=== PATIENT | female | born 2000 | race Caucasian/White ===

== ENCOUNTER 2021-08-22 10:55 | Inpatient (IN) ==
--- NOTE | 2021-08-22 11:52 | Emergency Department Note ---
Impression & Plan Lumbar disc herniation with radiculopathy ED Provider Note CHIEF COMPLAINT: Lower back pain HISTORY OF PRESENT ILLNESS: Domonique Foster is a 21 year old female with history of previous back injury with herniated lumbar discs in 2014 who presents to the Emergency Department for evaluation of an exacerbation of pain to her lower back, radiating down her bilateral posterior legs, R>L, with associated paresthesias, which she describes as "burning, vibrating and numbness", which has progressed over the past 12 days. The patient denies suffering specific recent fall or injury to her back but states that she first noticed pain after she did a lot of walking. Since then, she has developed the symptoms as noted above, which first radiated down her right posterior leg and has now also started to radiate down her left posterior leg as well. The patient also associates weakness in her legs and states that she has difficulty standing up straight or walking very short distances. She does note some numbness in her right groin as well but she denies specific saddle paresthesias or loss of continence of her bowels or bladder. She also denies pain radiating into her upper back, neck or down her arms. The patient did visit [facility] for her symptoms a few days ago and was prescribed a prednisone taper, Flexeril TID and Percocet Q4H which she has been taking around the clock. She has also started taking Lyrica as well. The patient does state that these medications do seem to be helping her as her pain has now gone from a "20/10" to a current 2/10, however as she seemed to have more weakness in her right leg today, she was referred to the ED for further evaluation. The patient states that she is the most comfortable when laying flat with a pillow under her lumbar spine and her legs bent. Her pain becomes much worse with attempts of movement. The patient otherwise denies recent fevers/chills, respiratory difficulties, chest pain, palpitations, abdominal pain, nausea or vomiting. She has continued to move her bowels and urinate normally. REVIEW OF SYSTEMS: 10 systems were reviewed and were negative unless otherwise stated in HPI as above PHYSICAL EXAM: VITALS: Vitals are noted on the nurse's note and reviewed by myself. Vital signs stable. General: Resting in bed, no acute distress HEENT: Normocephalic, atraumatic, PERRL, EOMI, mucous membranes moist, oropharynx clear Neck: No mid-line or paraspinal cervical tenderness, ROM intact without pained Back: Notes pain to the midline and bilateral lower paraspinal musculature but not reproducible to palpation. No obvious step-offs or deformities MSK/neuro: Notes burning pains and paraesthesias to the bilateral posterior lower extremities. Sensation intact to deep palpation but not to light touch to the posterior lower extremities and right groin. No pain or paresthesias to the anterior lower extremities or upper extremities. Strength remains 5/5 throughout all extremities Neuro: Awake, alert and oriented x 3, interacting and answering questions appropriately Differential diagnosis includes musculoskeletal, disc herniation, fracture, cord compression, discitis, sciatica, cauda equina, as well as other pathologies. EMERGENCY DEPARTMENT COURSE: Physical exam and history were performed. Nursing triage notes, EMR, and medication list were personally reviewed. Patient is a 21 year old female with history of previous back injury with herniated lumbar discs in 2014 who presents to the Emergency Department for ev aluation of an exacerbation of pain to her lower back, radiating down her bilateral posterior legs, R>L, with associated paresthesias, which she describes as "burning, vibrating and numbness", which has progressed over the past 12 days. Additional history as described above. See physical exam as noted above. The patient was offered pain medication several times throughout her emergency department course but declined. The patient's symptoms were concerning for disc herniation with cord compre ssion. Though she does not currently present with symptoms of cauda equina, concerning for progression to this. For these reasons, MRI of the lumbar spine were obtained. MRI lumbar spine was obtained and reviewed by radiologist myself as below. This did show a large disc herniation at L4-5 with severe central canal stenosis at this level and a large inferiorly extruded/possibly sequestered fragment. Mild degenerative endplate edema noted at L4-5. I discussed the results of the above findings with the patient at bedside. I also contacted Dr. Spencer of orthopedic spine. He evaluated the patient at bedside. He plans to admit the patient to the hospital for further management and likely surgical intervention. The patient verbalized her understanding and agreement with the treatment plan as above. The chart was completed utilizing [employer] Voice [employer]. Grammatical errors, random word insertions, pronoun errors, and incomplete sentences are an occasional consequence of this system due to software limitations, ambient noise, and hardware issues. Any formal questions or concerns about the content, text, or information contained within the body of this dictation should be directly addressed to the provider for clarification. Past Med/Surg History Medical History (Updated 08/22/21 @ 21:09 by Loli Null PA-C) No significant past medical history Surgical History (Updated 08/22/21 @ 21:08 by Loli Null PA-C) No pertinent past surgical history Social History Smoking Status: Current every day smoker Tobacco Type: E-cigarettes / Vaping Preferred Language: Moldovan Feels Safe at Home: Yes Allergies Allergies Allergy/AdvReac Type Severity Reaction Status Date / Time Penicillins Allergy Unknown Verified 04/24/18 22:33 Home Meds Home Medications Medication Instructions Recorded Confirmed Unobtainable 10/14/18 10/14/18 Results & Data (ED) Vital Signs Vital Signs - 24 hr 08/22/21 11:01 08/22/21 12:47 08/22/21 16:00 Temperature 36.5 C 36.6 C Temperature Source Temporal Artery Scan Oral Pulse Rate 100 H Pulse Rate [Right Finger] 77 72 Pulse Rhythm Regular Pulse Strength Normal Respiratory Rate 18 16 20 Respiratory Effort / Characteristics Non-Labored Spontaneous Respiratory Depth Normal Normal Respiratory Pattern Regular Blood Pressure 134/83 Blood Pressure [Right Arm] 127/61 136/75 Blood Pressure Mean 100 Blood Pressure Mean [Right Arm] 83 95 Blood Pressure Position Sitting Blood Pressure Position [Right Arm] Semi-fowlers Pulse Oximetry 97 94 98 Oxygen Delivery Method Room Air Room Air Room Air Sepsis Recent Fever Within 48 Hours No Sepsis New/Unexplained Change in Mental Status No Sepsis Action Taken by Nursing No Action Required 08/22/21 20:00 Temperature Temperature Source Pulse Rate Pulse Rate [Right Finger] 74 Pulse Rhythm Pulse Strength Respiratory Rate 20 Respiratory Effort / Characteristics Non-Labored Respiratory Depth Normal Respiratory Pattern Blood Pressure Blood Pressure [Right Arm] 124/77 Blood Pressure Mean Blood Pressure Mean [Right Arm] 92 Blood Pressure Position Blood Pressure Position [Right Arm] Lying Pulse Oximetry 98 Oxygen Delivery Method Room Air Sepsis Recent Fever Within 48 Hours Sepsis New/Unexplained Change in Mental Status Sepsis Action Taken by Nursing Laboratory Data Result diagrams: 08/22/21 15:49 08/22/21 15:49 Lab Results 08/22/21 08/22/21 08/22/21 Range/Units 15:49 15:49 15:49 WBC 11.72 H (4.8-10.8) K/ul RBC 5.40 H (3.93-5.22) M/uL Hgb 16.3 H (12.0-16.0) g/dl Hct 47.9 H (34.1-44.9) % MCV 88.7 (80.0-100.0) fL MCH 30.2 (25.0-34.0) pg MCHC 34.0 (32.0-36.0) g/dL RDW Std Deviation 40.3 (36.4-46.3) fL RDW Coeff of Walt 12.4 (11.5-14.5) % Plt Count 304 (130-400) K/uL MPV 10.9 (9.4-12.3) fL Immature Gran % (Auto) 0.3 % Neut % (Auto) 89.6 % Lymph % (Auto) 6.7 % Claiborne % (Auto) 3.3 % Eos % (Auto) 0.0 % Baso % (Auto) 0.1 % Neut # (Auto) 10.50 H (1.4-6.5) K/uL Lymph # (Auto) 0.78 L (1.2-3.4) K/uL Claiborne # (Auto) 0.39 (0.24-0.82) K/uL Eos # (Auto) 0.00 (0-0.50) K/uL Baso # (Auto) 0.01 (0-0.2) K/uL Immature Gran # (Auto) 0.04 H (0.00-0.02) K/uL Sodium 136 (136-145) mmol/L Potassium 4.1 (3.5-5.1) mmol/L Chloride 101 (98-107) mmol/L Carbon Dioxide 27 (21-32) mmol/L Anion Gap 8 (3-11) BUN 18 (6-23) mg/dl Creatinine 0.69 (0.6-1.2) mg/dl Est Cr Clr Drug Dosing 137.7 ml/min Est GFR ( Amer) 143.2 ml/min Est GFR (Non-Af Amer) 123.6 ml/min BUN/Creatinine Ratio 26.1 H (10-20) Glucose 106 H (70-99(Fasting)) mg/dl Calcium 10.1 (8.5-10.1) mg/dl Total Bilirubin 1.1 H (0.2-1.0) mg/dl AST 14 (13-39) U/L ALT 12 (7-52) U/L Alkaline Phosphatase 58 (34-104) U/L Total Protein 8.4 H (6.0-8.3) gm/dl Albumin 4.8 (3.4-5.0) gm/dl Globulin 3.6 (2.5-4.0) gm/dl Albumin/Globulin Ratio 1.3 (0.9-2) SARS-CoV-2, RNA, NAAT NEGATIVE (NEGATIVE) Imaging Data Radiologist's Impression: Lumbar Spine MRI 08/22/21 11:37 MRI OF THE LUMBAR SPINE WITHOUT IV CONTRAST CLINICAL HISTORY: Low back pain. Bilateral lower extremity weakness and paresthesias. COMPARISON STUDY: No priors. TECHNIQUE: MRI of the lumbar spine is performed utilizing various T1 and T2- weighted sequences in the axial and sagittal planes. IV contrast was not administered for this examination. FINDINGS: Lumbar spine: Vertebral body height and alignment are maintained throughout the lumbar spine. The transverse and spinous processes appear intact. There is no spondylolysis. No destructive bony lesion is seen. Chronic degenerative endplate change and mild endplate edema is noted at L4-L5. Intervertebral discs: Degenerative disc desiccation and loss of height is seen in the mid to lower lumbar region. Loss of height is moderate at L3-L4 and L4- L5. Spinal cord: The visualized spinal cord is normal in morphology and signal intensity. The conus medullaris terminates at the T12-L1 interspace. The nerve roots of the cauda equina are normal in morphology. L1-L2: Unremarkable. L2-L3: There is broad-based posterior disc bulge with annular fissure. This abuts the transiting nerve roots. No significant acquired compromise of the central canal is identified. The neural foramina are patent. L3-L4: There is broad-based posterior disc bulge with annular fissure. This abu ts the transiting nerve roots. No significant acquired compromise of the central canal is identified. The neural foramina are patent. L4-L5: There is a large posterior disc herniation with an inferiorly extruded fragment. The extruded disc fragment measures up to 2.5 cm. This impinges on the transiting nerve roots and tethers the cauda equina. There is severe central canal stenosis at this level with a minimum AP canal diameter of less than 1 mm. Left lateral disc bulge contributes to severe subarticular stenosis and impinges on the exiting left L4 nerve root. There is a mild right lateral disc bulge. There is moderate left and minimal right neural foraminal narrowing. L5-S1: Unremarkable. Sacrum: The visualized sacrum is normal in morphology and signal intensity. Soft tissues: The paraspinous soft tissues are within normal limits. The retroperitoneal structures are grossly unremarkable but incompletely evaluated. IMPRESSION: 1. There is a large disc herniation at L4-L5 with severe central canal stenosis at this level and a large inferiorly extruded/possibly sequestered fragment. Surgical evaluation is advised. 2. Degenerative disc disease at additional levels as above. 3. Mild degenerative endplate edema is noted at L4-L5. Dictated: 08/22/2021 12:43 PM Transcribed: 08/22/2021 1:08 PM Daniella [id number] [email or web address] Electronically signed by: Hubert Humphrey M.D. 08/22/2021 1:10 PM Discharge Plan Visit Data Chief Complaint: Back Injury/Pain Stated Complaint: RT LEG NUMB,HERNIATED DISC,LT LEG TINGLING ED Provider: Mark Collado ED Midlevel Provider: Loli Null Discharge Problem: Lumbar disc herniation with radiculopathy Patient Disposition: Admitted As Inpatient Forms Stand Alone Forms: [facility] Prescriptions Prescriptions: No Action Unobtainable Referrals Referrals: PCP,NO [Physician] -
--- NOTE | 2021-08-22 13:11 | Magnetic Resonance Report ---
MRI OF THE LUMBAR SPINE WITHOUT IV CONTRAST CLINICAL HISTORY: Low back pain. Bilateral lower extremity weakness and paresthesias. COMPARISON STUDY: No priors. TECHNIQUE: MRI of the lumbar spine is performed utilizing various T1 and T2-weighted sequences in the axial and sagittal planes. IV contrast was not administered for this examination. FINDINGS: Lumbar spine: Vertebral body height and alignment are maintained throughout the lumbar spine. The tra nsverse and spinous processes appear intact. There is no spondylolysis. No destructive bony lesion is seen. Chronic degenerative endplate change and mild endplate edema is noted at L4-L5. Intervertebral discs: Degenerative disc desiccation and loss of height is seen in the mid to lower juvenal mbar region. Loss of height is moderate at L3-L4 and L4-L5. Spinal cord: The visualized spinal cord is normal in morphology and signal intensity. The conus medul markos terminates at the T12-L1 interspace. The nerve roots of the cauda equina are normal in morpholo gy. L1-L2: Unremarkable. L2-L3: There is broad-based posterior disc bulge with annular fissure. This abuts the transiting nerv e roots. No significant acquired compromise of the central canal is identified. The neural foramina a re patent. L3-L4: There is broad-based posterior disc bulge with annular fissure. This abuts the transiting nerv e roots. No significant acquired compromise of the central canal is identified. The neural foramina a re patent. L4-L5: There is a large posterior disc herniation with an inferiorly extruded fragment. The extruded disc fragment measures up to 2.5 cm. This impinges on the transiting nerve roots and tethers the caud a equina. There is severe central canal stenosis at this level with a minimum AP canal diameter of le ss than 1 mm. Left lateral disc bulge contributes to severe subarticular stenosis and impinges on the exiting left L4 nerve root. There is a mild right lateral disc bulge. There is moderate left and min imal right neural foraminal narrowing. L5-S1: Unremarkable. Sacrum: The visualized sacrum is normal in morphology and signal intensity. Soft tissues: The paraspinous soft tissues are within normal limits. The retroperitoneal structures a re grossly unremarkable but incompletely evaluated. IMPRESSION: 1. There is a large disc herniation at L4-L5 with severe central canal stenosis at this level and a l arge inferiorly extruded/possibly sequestered fragment. Surgical evaluation is advised. 2. Degenerative disc disease at additional levels as above. 3. Mild degenerative endplate edema is noted at L4-L5. Dictated: 08/22/2021 12:43 PM Transcribed: 08/22/2021 1:08 PM Daniella [id number] [email or web address] Electronically signed by: Hubert Humphrey M.D. 08/22/2021 1:10 PM
[2021-08-22 16:07] LABS: Basophils # (auto) 0.01 K/uL (0-0.2); Basophils % (auto) 0.1 %; Hematocrit (blood only) 47.9 % (34.1-44.9); Hemoglobin 16.3 g/dl (12.0-16.0); Immature Granulocytes # (auto) 0.04 K/uL (0.00-0.02); Immature Granulocytes % (auto) 0.3 %; Lymphocytes # (auto) 0.78 K/uL (1.2-3.4); Lymphocytes % (auto) 6.7 %; Mean Corpuscular Hemoglobin 30.2 pg (25.0-34.0); Mean Corpuscular Volume 88.7 fL (80.0-100.0); Mean Platelet Volume 10.9 fL (9.4-12.3); Monocytes # (auto) 0.39 K/uL (0.24-0.82); Monocytes % (auto) 3.3 %; Neutrophils % (auto) 89.6 %; Platelet Count 304 K/uL (130-400); RDW Coefficient of Variation 12.4 % (11.5-14.5); RDW Standard Deviation 40.3 fL (36.4-46.3); White Blood Count 11.72 K/ul (4.8-10.8)
[2021-08-22 16:26] LABS: Albumin Globulin Ratio 1.3 (0.9-2); Albumin Level 4.8 gm/dl (3.4-5.0); BUN Creatinine Ratio 26.1 (10-20); Bilirubin,Total 1.1 mg/dl (0.2-1.0); Calcium 10.1 mg/dl (8.5-10.1); Creatinine Clr Calc Pharmacy 137.7 ml/min; Est GFR (African American) 143.2 ml/min; Est GFR (Non-African American) 123.6 ml/min; Globulin 3.6 gm/dl (2.5-4.0); Potassium 4.1 mmol/L (3.5-5.1); Total Protein 8.4 gm/dl (6.0-8.3)
--- NOTE | 2021-08-22 16:43 | History & Physical Report ---
Date of Service August 22, 2021 Assessment & Plan (1) Lumbar disc herniation with radiculopathy: Plan: Assessment massive lumbar disc herniation L4-5 with caudal migration of free fragment favoring the right side. This is causing severe spinal stenosis. Plan at this time she is being admitted. She is a candidate for lumbar decompression and fusion. We are awaiting her family to arrive for final plan. We had lengthy discussion today regarding cauda equina and symptoms to be wary of. Obviously if there is an change in her status she will notify us. This point we will admit her for pain control make her n.p.o. after midnight and possible plan for surgery tomorrow once we have an opportunity to review her case with the family. History of Present Illness Chief Complaint: Back pain with bilateral leg numbness Primary Care Provider: [facility] [[email or web address]] This is a very pleasant 21-year-old female who presents the emergency room today with significant back pain and worsening leg numbness. She states he is symptoms involving the right leg began a few days ago but now involve the left leg. She is pain across lumbosacral junction rating the buttocks. There is a dense numbness in the right posterior thigh below the knee into her lateral foot. On the left she has intermittent numbness with radicular pain down to the foot. She denies any precipitating trauma fall or event. She is currently a student at [employer]. She denies any loss of bowel or bladder control. She denies any perineal numbness. Allergies Allergy/AdvReac Type Severity Reaction Status Date / Time Penicillins Allergy Unknown Verified 04/24/18 22:33 Home Medications Medication Instructions Recorded Confirmed Type Unobtainable 10/14/18 10/14/18 History Past Med/Surg History Medical History (Updated 08/22/21 @ 16:42 by Vikash Spencer DO) No significant past medical history Social History Smoking Status: Current every day smoker Tobacco Type: E-cigarettes / Vaping Preferred Language: Amharic Feels Safe at Home: Yes Physical Exam Physical Exam: On exam patient is most comfortable lying supine with her knees bent under a pillow. She has dense numbness to touch involving the right lower extremity from the thigh to the lateral foot. There is increased sensation to the left lower extremity. She is marked tension signs with straight leg raising on the left with contralateral signs straight leg raising on the right. Deep tendon reflexes diminished. She is a plus 5 out of 5 bilateral plantar flexion dorsiflexion extensor hallucis longus quadriceps. Results & Data Results & Data ([facility]) Vital Signs (Past 12 Hours) Vital Signs Temp Pulse Pulse Resp BP BP Pulse Ox 08/22/21 16:00 36.6 C 72 20 136/75 98 08/22/21 12:47 77 16 127/61 94 08/22/21 11:01 36.5 C 100 H 18 134/83 97 O2 Del Method 08/22/21 16:00 Room Air 08/22/21 12:47 Room Air 08/22/21 11:01 Room Air Code Status & VTE Plan VTE Prophylaxis Plan VTE Prophylaxis will be ordered: Yes
[2021-08-22] MEDS ORDERED: PROMETHAZINE HCL 12.5 MG in SODIUM CHLORIDE 0.9% 50 ML IV PRN (21:33)
[2021-08-22] MEDS ORDERED: ONDANSETRON INJ 2 MG/ML 2 ML VIAL IV PRN (21:33)
[2021-08-22] MEDS ORDERED: NALOXONE HCL 0.4 MG/1 ML VIAL/CARP IV PRN (21:33)
[2021-08-22] MEDS ORDERED: LORazepam 0.5 MG in SYRINGE 0.25 ML IV PRN (21:33)
[2021-08-22] MEDS ORDERED: LORazepam 0.5 MG TAB PO PRN (21:33)
[2021-08-22] MEDS ORDERED: ACETAMINOPHEN 500 MG TAB PO PRN (21:33)
[2021-08-22] MEDS ORDERED: ONDANSETRON 4 MG OD TAB PO PRN (21:33)
[2021-08-22] MEDS ORDERED: oxyCODONE HCL IR 5 MG TAB (IMMEDIATE RELEASE) PO PRN (21:33)
[2021-08-22] MEDS ORDERED: traMADol HCL 50 MG TABLET PO PRN (21:33)
[2021-08-22] MEDS ORDERED: METOCLOPRAMIDE HCL INJ 5 MG/ML 2 ML VIAL IV PRN (21:33)
[2021-08-22] MEDS: HYDROmorphone INJ 0.5 MG/0.5 ML SYR IV PRN ×2 (22:07→22:28)
[2021-08-22] MEDS: LACTATED RINGER'S 1,000 ML IV SCH (22:07)
[2021-08-22] MEDS: ACETAMINOPHEN 1,000 MG/100 ML VIAL IV PRN (22:29)
[2021-08-23] MEDS ORDERED: CLINDAMYCIN/D5W 600 MG/50 ML BAG IV SCH (06:00)
[2021-08-23] MEDS: HYDROmorphone INJ 1 MG/ML SYRINGE IV PRN ×14 (07:54→23:19)
[2021-08-23] MEDS: LACTATED RINGER'S 1,000 ML IV SCH ×2 (10:37→20:18)
[2021-08-23] MEDS: ACETAMINOPHEN 1,000 MG/100 ML VIAL IV PRN (10:40)
--- NOTE | 2021-08-23 12:58 | Anesthesiology Consultation ---
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 History Surgery Operation Date: 08/23/21 07:00 Proposed Procedures p L4-L5 Decompression Fusion - Vikash Spencer DO Height/Weight Height: 5 ft 7 in Weight: 78.1 kg Allergies Allergy/AdvReac Type Severity Reaction Status Date / Time Penicillins Allergy Unknown Verified 04/24/18 22:33 Medications Home Medications Medication Instructions Recorded Confirmed Last Taken Unobtainable 10/14/18 10/14/18 Unknown Active Medications Generic Name Dose Route Start Last Admin Trade Name Freq PRN Reason Stop Dose Admin Hydromorphone HCl 0.5 mg 08/22/21 21:33 08/22/21 22:28 Hydromorphone Inj 0.5 Mg/0.5 Ml Syr IV 09/05/21 21:32 0.5 mg Q3H PRN Administration MOD pain (scale 4-6) & Pre PT Hydromorphone HCl 1 mg 08/22/21 21:33 08/23/21 10:37 Hydromorphone Inj 1 Mg/Ml Syringe IV 09/05/21 21:32 1 mg Q3H PRN Administration severe pain (scale 7-10) Acetaminophen 1,000 mg in 100 mls @ 400 mls/hr 08/22/21 21:33 08/23/21 10:40 Ofirmev IV 08/23/21 21:33 400 mls/hr Q8H PRN Administration Pain Rating 1-3 & Pre PT Lactated Ringer's 1,000 mls @ 75 mls/hr 08/22/21 21:33 08/23/21 10:37 Lr IV 09/21/21 21:32 75 mls/hr .[id number] Administration Oxycodone HCl 5 - 10 mg 08/22/21 21:33 08/23/21 01:08 Oxycodone Hcl Ir 5 Mg Tab (Immediate Release) PO 09/05/21 21:32 10 mg Q4H PRN Administration mod to severe pain Past Medical History Medical History No significant past medical history Past Surgical History Surgical History No pertinent past surgical history Social History Smoking Status: Current some day smoker tobacco type: cigarettes Smoking cigarettes per day: 1 every 3 weeks Do You Dip or Chew Tobacco: No Hx Alcohol Use: Yes Alcohol type: hard liquor alcohol intake frequency: a few times a week Alcohol Intake Frequency Comment: 4-6 drinks Hx Substance Use: Yes substance use type: marijuana Last Used Substance: Days (ago) Physical Exam Vital Signs Last Vital Signs Temp 97.5 F L 08/23/21 11:42 Pulse 56 L 08/23/21 11:42 Resp 16 08/23/21 11:42 BP 103/63 08/23/21 11:42 Pulse Ox 97 08/23/21 11:42 O2 Del Method 08/23/21 11:42 Testing Laboratory Results 08/22/21 15:49 08/22/21 15:49
[2021-08-23] MEDS ORDERED: ONDANSETRON INJ 2 MG/ML 2 ML VIAL IV PRN ×2 (13:30→19:44)
[2021-08-23] MEDS ORDERED: ATROPINE SULFATE 0.1 MG/ML 10ML SYR IV PRN (13:30)
[2021-08-23] MEDS ORDERED: ePHEDrine sulfate 50 MG/ML AMP IV PRN (13:30)
--- NOTE | 2021-08-23 14:04 | History & Physical Bridge Note ---
Date of Service August 23, 2021 History & Physical Bridge Note I have examined the patient, reviewed the History & Physical and in the interval since the performance of the History & Physical I have noted the following changes of clinical significance: Patient continues to note dense numbness to the right lower extremity with radiculopathy left lower extremity. She is marked inability ambulate without assistance. In light of her MRI findings and clinical presentation and recommending emergent decompression fusion to avoid permanent neurologic damage.
[2021-08-23] MEDS ORDERED: fentaNYL citrate 100 MCG/2 ML VIAL ONE (14:37)
[2021-08-23] MEDS ORDERED: ONDANSETRON INJ 2 MG/ML 2 ML VIAL ONE (14:37)
[2021-08-23] MEDS ORDERED: MIDAZOLAM HCL 1 MG/ML 2ML VIAL ONE (14:37)
[2021-08-23] MEDS ORDERED: LIDOCAINE 2% 20 MG/ML 5 ML SYR IV ONE (14:37)
[2021-08-23] MEDS ORDERED: PROPOFOL IV EMULSION 10 MG/ML 20 ML VIAL IV ONE (14:37)
[2021-08-23] MEDS ORDERED: BUPIVACAINE/EPINEPHRINE 0.25% 1:200,000 30 ML VIAL ONE (14:39)
[2021-08-23] MEDS ORDERED: HYDROmorphone INJ 2 MG/ML SYR/VIAL ONE (15:24)
[2021-08-23] MEDS ORDERED: ROCURONIUM BROMIDE 10 MG/ML 5 ML VIAL IV ONE (15:24)
[2021-08-23] MEDS ORDERED: FLOSEAL HEMOSTATIC MATRIX 10ML TOP ONE (15:40)
[2021-08-23] MEDS ORDERED: ePHEDrine sulfate 50 MG/ML AMP ONE (15:46)
[2021-08-23] MEDS ORDERED: NEOSTIGMINE METHYLSULFATE 1 MG/ML 10ML VIAL ONE (16:00)
[2021-08-23] MEDS ORDERED: GLYCOPYRROLATE 0.2 MG/ML VIAL ONE (16:00)
[2021-08-23] MEDS ORDERED: DEXAMETHASONE SOD INJ 4 MG/ML VIAL ONE (16:02)
--- NOTE | 2021-08-23 16:36 | Operative Report ---
Post Operative Report Pre & Post Diagnosis Operation Date: 08/23/21 07:00 Pre-Op Diagnosis: Lumbar disc herniation with radiculopathy Post-Op Diagnosis: Lumbar disc herniation with radiculopathy I identified the patient and participated in the time-out.: Yes Procedure Operation Date: 08/23/21 07:00 Actual Procedures #1 lumbar decompression bilateral medial facetectomies and foraminotomies L4-L5 per #2 posterior spinal fusion L4-5 per #3 placement posterior instrumentation L4-5 per #4 interbody fusion L4-L5. #5 placement of Spira 12 x 26 mm cage at L4 -5. #6 placement locally harvested morselized autograft in the posterior gutters. #7 placement of I factor, the V toss in the interbody space and posterior lateral gutters. Surgeon Vikash Spencer, DO Assistant Facility Manager Lalit Eng Estimated Blood Loss 50 Findings Consistent with Post-Op Diagnosis Specimens None Indications This is a 21-year-old female who presents with severe leg pain and numbness that been progressive in nature and is here for emergent decompression fusion to avoid permanent neurologic deficit Description of Procedure Patient was met with identified informed consent obtained. Patient was then taken to the operative suite underwent a patient placed in a prone position the Bolivar table top Earl frame. All bony prominences well-padded eyes inspected to ensure no external pressure placed upon the. This point the lumbar spine was prepped and draped in normal sterile fashion. Sharp dissection with the assistance of Bovie cautery was performed down to and exposing the lamina and transverse processes of L4 and L5 bilaterally. From a caudal to cephalad fashion complete laminectomy of L4 was performed including medial facetectomies and foraminotomies. Obvious severe neural compression was noted. Was able to mobilize the left traversing root medially to address a massive disc herniation. He was removed his entirety as well as able to identify the fragment that is migrated caudally off to the right side. After this complete pedicle screws were placed at L4 and L5 bilaterally with assistance of fluoroscopy the proper sized olman placed. By way of entrance foraminal approach and left knee discectomy was performed endplates curetted to subcortical bleeding bone and a 12 x 26 mm spiral cage filled with I factor tapped into position. The rods were then compressed locked into final position bilaterally. The transverse processes of L4 and L5 burred to subcortical bleeding bone. I factor combined with V toss and locally harvested morselized autograft was placed in the posterior gutters. 15 round JULIET drain inserted. The incision was then closed with 1 Vicryl the fascia 2-0 Vicryl subcutaneously and 4 Monocryl for final skin closure. Steri-Strip sterile dressings placed. Patient waken taken to PACU stable condition. Please note spinal cord monitoring was utilized at the pro cedure no changes noted. Lastly Lalit Eng was present out the entire procedure involved the patient positioning complex portions of the surgery and fascial closure. I attest to the content of the Intraoperative Record and any orders documented therein. Any exceptions are noted below.
[2021-08-23] MEDS: fentaNYL citrate 100 MCG/2 ML VIAL IV PRN ×4 (17:07→17:28)
--- NOTE | 2021-08-23 17:08 | Fluoroscopy Report ---
FL lumbar spine 2-3V CLINICAL HISTORY: L4-5 DFI TECHNIQUE: 2 views were obtained with the C-arm in the OR with the above procedure. Total fluoroscopy time was 22.7 seconds. Total skin dose was 18.07 mGy. Comparison: None available at the time of this dictation. FINDINGS/IMPRESSION: Intraoperative images were obtained of L4-L5 decompression and fusion. Please correlate with intraoperative fluoroscopy and operative report. ACT 112: Negative or not required by law. Electronically signed by: Hilario Chamberlain M.D. 08/23/2021 5:07 PM
--- NOTE | 2021-08-23 19:08 | Anesthesiology Progress Note ---
Date of Service August 23, 2021 Anesthesia Post Procedure Vital Signs Vital Signs: Temp Pulse Pulse Pulse Resp BP BP 08/23/21 19:00 36.7 C 61 12 119/72 08/23/21 18:50 56 L 10 L 118/75 08/23/21 18:40 63 14 115/89 08/23/21 18:20 54 L 10 L 107/70 08/23/21 18:30 54 L 10 L 114/77 08/23/21 18:10 67 15 116/87 08/23/21 18:00 58 L 15 108/69 08/23/21 17:50 53 L 10 L 113/68 08/23/21 17:40 54 L 12 111/65 08/23/21 17:30 61 11 L 119/68 08/23/21 17:20 62 10 L 133/77 08/23/21 17:10 65 13 125/77 08/23/21 17:00 60 13 118/74 08/23/21 16:54 36.5 C 71 12 131/91 08/23/21 13:05 37 C 68 18 116/78 08/23/21 11:42 36.4 C L 56 L 16 103/63 08/23/21 07:41 36.6 C 74 16 124/80 08/22/21 21:45 36.9 C 72 18 128/79 08/22/21 21:06 70 20 122/71 08/22/21 20:00 74 20 124/77 Pulse Ox O2 Del Method O2 Flow Rate 08/23/21 19:00 98 Room Air 08/23/21 18:50 96 Room Air 08/23/21 18:40 100 Room Air 08/23/21 18:20 100 Room Air 08/23/21 18:30 98 Room Air 08/23/21 18:10 100 Room Air 08/23/21 18:00 100 Room Air 08/23/21 17:50 98 Room Air 08/23/21 17:40 96 Room Air 08/23/21 17:30 100 Oxymask 3 08/23/21 17:20 100 Oxymask 3 08/23/21 17:10 100 Oxymask 3 08/23/21 17:00 100 Oxymask 3 08/23/21 16:54 100 Oxymask 5 08/23/21 13:05 99 Room Air 08/23/21 11:42 97 Room Air 08/23/21 07:41 98 Room Air 08/22/21 21:45 100 Room Air 08/22/21 21:06 99 Room Air 08/22/21 20:00 98 Room Air Pain Intensity Leg: Pain Intensity: 7 Transfer of Care Handoff Completed per policy Notes Mental Status: alert / awake / arousable and participated in evaluation Patient Amnestic to Procedure: Yes Nausea / Vomiting: adequately controlled Pain: adequately controlled Airway Patency, RR, SpO2: stable & adequate BP & HR: stable & adequate Hydration State: stable & adequate Anesthetic Complications: no major complications apparent
[2021-08-23] MEDS ORDERED: LORazepam 0.5 MG TAB PO PRN (19:44)
[2021-08-23] MEDS ORDERED: METOCLOPRAMIDE HCL INJ 5 MG/ML 2 ML VIAL IV PRN (19:44)
[2021-08-23] MEDS ORDERED: FAMOTIDINE 20 MG TAB PO PRN (19:44)
[2021-08-23] MEDS ORDERED: ACETAMINOPHEN 500 MG TAB PO PRN (19:44)
[2021-08-23] MEDS ORDERED: ONDANSETRON 4 MG OD TAB PO PRN (19:44)
[2021-08-23] MEDS ORDERED: ACETAMINOPHEN 1,000 MG/100 ML VIAL IV PRN (19:44)
[2021-08-23] MEDS ORDERED: LORazepam 0.5 MG in SYRINGE 0.25 ML IV PRN (19:44)
[2021-08-23] MEDS ORDERED: SOD PHOSPHATE/SOD BIPHOSPHATE ENEMA 132 ML BTL PR PRN (19:44)
[2021-08-23] MEDS ORDERED: ALUMINUM/MAGNESIUM SUSP 30 ML UDC PO PRN (19:44)
[2021-08-23] MEDS ORDERED: traMADol HCL 50 MG TABLET PO PRN (19:44)
[2021-08-23] MEDS ORDERED: hydrOXYzine HCl 25 MG TAB PO PRN (19:44)
[2021-08-23] MEDS ORDERED: PROMETHAZINE HCL 12.5 MG in SODIUM CHLORIDE 0.9% 50 ML IV PRN (19:44)
[2021-08-23] MEDS ORDERED: NALOXONE HCL 0.4 MG/1 ML VIAL/CARP IV PRN (19:44)
[2021-08-23] MEDS ORDERED: bisacodyL 10 MG SUPP PR PRN (19:44)
[2021-08-23] MEDS ORDERED: diphenhydrAMINE Capsule 25 MG CAP PO PRN (19:44)
[2021-08-23] MEDS ORDERED: HYDROmorphone INJ 0.5 MG/0.5 ML SYR IV PRN (19:44)
[2021-08-23] MEDS: DOCUSATE SODIUM/SENNA 50/8.6MG TAB PO SCH (22:15)
[2021-08-23] MEDS: oxyCODONE HCL IR 5 MG TAB (IMMEDIATE RELEASE) PO PRN (22:15)
[2021-08-23] MEDS: CLINDAMYCIN 600 MG in DEXTROSE 5% 50 ML IV SCH (22:15)
[2021-08-24] MEDS: oxyCODONE HCL IR 5 MG TAB (IMMEDIATE RELEASE) PO PRN ×3 (02:26→22:25)
[2021-08-24] MEDS: HYDROmorphone INJ 1 MG/ML SYRINGE IV PRN (04:19)
[2021-08-24] MEDS: LACTATED RINGER'S 1,000 ML IV SCH (06:04)
[2021-08-24] MEDS: CLINDAMYCIN 600 MG in DEXTROSE 5% 50 ML IV SCH (06:28)
[2021-08-24] MEDS: POLYETHYLENE (MIRALAX) 17 GM PACK PO SCH ×4 (06:28→22:26)
[2021-08-24 08:01] LABS: Basophils # (auto) 0.02 K/uL (0-0.2); Basophils % (auto) 0.1 %; Eosinophils # (auto) 0.04 K/uL (0-0.50); Eosinophils % (auto) 0.3 %; Hematocrit (blood only) 41.8 % (34.1-44.9); Immature Granulocytes # (auto) 0.06 K/uL (0.00-0.02); Immature Granulocytes % (auto) 0.4 %; Lymphocytes # (auto) 2.04 K/uL (1.2-3.4); Lymphocytes % (auto) 15.1 %; Mean Corpuscular Hemoglobin 30.2 pg (25.0-34.0); Mean Corpuscular Hgb Conc 33.5 g/dL (32.0-36.0); Mean Corpuscular Volume 90.3 fL (80.0-100.0); Mean Platelet Volume 11.1 fL (9.4-12.3); Monocytes # (auto) 1.09 K/uL (0.24-0.82); Neutrophils % (auto) 76.1 %; Platelet Count 231 K/uL (130-400); RDW Coefficient of Variation 12.1 % (11.5-14.5); RDW Standard Deviation 39.8 fL (36.4-46.3); Red Blood Count 4.63 M/uL (3.93-5.22); White Blood Count 13.55 K/ul (4.8-10.8)
[2021-08-24 08:20] LABS: Anion Gap 4 (3-11); BUN Creatinine Ratio 24.6 (10-20); Blood Urea Nitrogen 14 mg/dl (6-23); Calcium 9.2 mg/dl (8.5-10.1); Carbon Dioxide 31 mmol/L (21-32); Chloride 101 mmol/L (98-107); Creatinine Clr Calc Pharmacy 166.7 ml/min; Est GFR (African American) > 150.0 ml/min; Est GFR (Non-African American) 131.6 ml/min; Glucose 94 mg/dl (70-99(Fasting)); Potassium 3.9 mmol/L (3.5-5.1); Sodium 136 mmol/L (136-145)
[2021-08-24] MEDS: dexAMETHasone 6 MG in SYRINGE 0 ML IV SCH (08:40)
--- NOTE | 2021-08-24 10:44 | Orthopedic Progress Note ---
Date of Service August 24, 2021 Assessment & Plan (1) Lumbar disc herniation with radiculopathy: Plan: We will begin physical therapy today monitor her JULIET output hopefully discharge home Thursday. Admission and Anticipated Discharge Date Admission Date: August 22, 2021 Subjective Back pain is controlled. Her left leg pain is improving. Her right leg numbness is also improving. Physical Exam Physical Exam: On exam she is currently in bed. She is good strength testing. Appears comfortable. Results & Data ([facility]) Vital Signs (Past 12 Hours) Vital Signs Temp Pulse Resp BP Pulse Ox O2 Del Method 08/24/21 07:12 36.9 C 51 L 16 110/69 99 Room Air 08/24/21 04:00 36.8 C 76 16 107/69 99 Room Air
[2021-08-24] MEDS: DOCUSATE SODIUM/SENNA 50/8.6MG TAB PO SCH (22:26)
[2021-08-25] MEDS: POLYETHYLENE (MIRALAX) 17 GM PACK PO SCH ×4 (06:16→21:19)
[2021-08-25] MEDS: dexAMETHasone 6 MG in SYRINGE 0 ML IV SCH (08:30)
--- NOTE | 2021-08-25 09:15 | Orthopedic Progress Note ---
Date of Service August 25, 2021 Assessment & Plan (1) Lumbar disc herniation with radiculopathy: Plan: Domonique is postop day 2 lumbar decompression instrumented fusion of L4-5. She is making great progress. We will continue with physical therapy today. Maintain JULIET drain. Pain control. DVT prophylaxis is in the form of teds and SCDs. Anticipate discharge home tomorrow. Admission and Anticipated Discharge Date Admission Date: August 22, 2021 Subjective Domonique is postoperative day 2 posterior lumbar decompression instrumented fusion of L4-5 with borderline cauda equina symptoms. JULIET drain output is 30 cc. Yesterday in physical therapy she is ambling 280 feet. She states her left leg pain is improved as well as her right lower extremity numbness. She does have some right buttock pain. She is passing flatus. States perineal numbness is improving as well. No loss of control of bowel or bladder Review of Systems Review of Systems: All systems reviewed & are unremarkable except as noted in HPI & below Physical Exam Physical Exam: She sitting on the edge of the bed eating breakfast in no acute distress Lumbar dressing is clean dry intact with functioning JULIET drain Strength is intact bilateral lower extremities Calf soft nontender bilateral lower extremity Results & Data ([facility]) Vital Signs (Past 12 Hours) Vital Signs Temp Pulse Resp BP Pulse Ox O2 Del Method 08/25/21 07:54 36.7 C 70 16 96/58 L 99 Room Air 08/24/21 23:10 37.3 C 68 16 106/66 98 Room Air
[2021-08-25] MEDS: oxyCODONE HCL IR 5 MG TAB (IMMEDIATE RELEASE) PO PRN ×2 (09:21→21:24)
[2021-08-25] MEDS: MAGNESIUM HYDROXIDE SUSP 30 ML UDC PO PRN (18:34)
[2021-08-25] MEDS: DOCUSATE SODIUM/SENNA 50/8.6MG TAB PO SCH (21:19)
[2021-08-26] MEDS: POLYETHYLENE (MIRALAX) 17 GM PACK PO SCH (06:13)
[2021-08-26] MEDS: dexAMETHasone 6 MG in SYRINGE 0 ML IV SCH (07:59)
--- NOTE | 2021-08-26 13:00 | Orthopedic Progress Note ---
Date of Service August 26, 2021 Assessment & Plan (1) Lumbar disc herniation with radiculopathy: Plan: At this time we will continue physical therapy discontinuing change her dressing today. If she is independent tomorrow will be able to discharge home. Admission and Anticipated Discharge Date Admission Date: August 22, 2021 Subjective Back pain is controlled leg symptoms improved Physical Exam Physical Exam: On exam the patient is comfortable is good strength testing. Results & Data ([facility]) Vital Signs (Past 12 Hours) Vital Signs Temp Pulse Resp BP Pulse Ox O2 Del Method 08/26/21 08:00 Room Air 08/26/21 07:33 36.6 C 68 16 99/63 L 97 Room Air
[2021-08-26] MEDS: MAGNESIUM HYDROXIDE SUSP 30 ML UDC PO PRN (15:08)
[2021-08-26] MEDS: DOCUSATE SODIUM/SENNA 50/8.6MG TAB PO SCH (20:40)
--- NOTE | 2021-08-27 08:45 | Discharge Summary ---
Date of Service August 27, 2021 Admission HPI Per Admitting Provider This is a very pleasant 21-year-old female who presents the emergency room today with significant back pain and worsening leg numbness. She states he is symptoms involving the right leg began a few days ago but now involve the left leg. She is pain across lumbosacral junction rating the buttocks. There is a dense numbness in the right posterior thigh below the knee into her lateral foot. On the left she has intermittent numbness with radicular pain down to the foot. She denies any precipitating trauma fall or event. She is currently a student at [employer]. She denies any loss of bowel or bladder control. She denies any perineal numbness. Principal Diagnosis Lumbar disc condition with radiculopathy Discharge Data Allergies Allergy/AdvReac Type Severity Reaction Status Date / Time Penicillins Allergy Unknown Verified 04/24/18 22:33 Consultations 08/22/21 17:17 ED Decision to Admit Stat Procedures Performed Operation Date: 08/23/21 07:00 Actual Procedures p L4-L5 Decompression Fusion with Spinal Cord Monitoring(Not Applicable) - Vikash Spencer DO Ordered Studies 08/22/21 11:37 MRI Lumbar Spine [MR lumbar spine wo con] Stat 08/23/21 14:00 FL lumbar spine 2-3V Routine Hospital Course (1) Lumbar disc herniation with radiculopathy: Patient was admitted with marked decline in neurologic function and underwent emergent decompression fusion. Patient tolerated this well was taken to orthopedic for postoperative. Postop day 1 she began physical therapy progressed to postop day #2 and 3. JULIET drain decreasing appropriate. Strength and numbness improving. Separately discharged home. Discharge orders instructions from the chart for further review. Total Time Total Time Spent Total Time Spent (In Minutes): 20 minutes Discharge Plan Discharge Items Patient Disposition: Home - Self-Care Reason For Visit: LUMBAR DISK HERNIATION Discharge Diagnosis: Lumbar disc herniation with radiculopathy Activity: As commented below Non-emergency contact: Primary Care Provider Call non-emergency contact if: you have any medication questions Follow-up/Referrals: [facility] [Primary Care Provider] - Diet: Regular Addtl Attending Provider Instructions: ACTIVITY RECOMMENDATIONS: SELF CARE INSTRUCTIONS AFTER THORACIC/LUMBAR FUSIONS 1. You may walk to your tolerance. It is good exercise for your legs and back. Expect some back and intermittent leg aches and pains. 2. You may perform "counter-top" level activities (make a sandwich, mary ellen with a project, etc.). 3. No bending or lifting of more than 10 pounds or back twisting of any nature (roll like a log when turning in bed). 4. You may ride in a car for 20-30 minutes at a time. No driving until after your first visit with your doctor. 5. Frequent changes of position and restricting sitting to 30 minutes at a time will help limit the amount of back spasms and stiffness you may experience. 6. You may discontinue the use of ambulatory aids (cane, crutches, etc.) once your strength and confidence allow. 7. You may clinical lab assistant the shower and let water strike your incision when you arrive home at least once daily. Do not take a tub bath, sit in a hot tub or go into a swimming pool until after your first recheck in the office. SPECIAL CARE INSTRUCTIONS: VERY IMPORTANT TO READ AND REVIEW A. Your surgical incision has been closed with a cosmetic suture under the skin that will dissolve in about 6 weeks. In 14 days, you can use a pair of clean scissors and cut the suture that is left outside of the skin at the ends of your incision. 1. The small skin tapes can be removed 7 days after surgery if they have not fallen off by that point. 2. You may keep the wound open to air as much as possible to promote healing after post-op day number 5 unless told otherwise by your doctor. 3. If you think the wound looks like it is becoming infected (redness or worsening drainage) and/or you are experiencing fever, chill or worsening back pain and muscle spasms, contact the office so that we may evaluate you as soon as possible. B. Complications are uncommon, but please contact us if you have any signs or symptoms of: 1. wound infection (fever higher than 102.5 degrees F, redness, separation of wound, drainage, or increasing pain from the incision) 2. blood clots in legs (pain, swelling, redness and warmth in legs) 3. urinary tract infection (fever higher than 102.5 degrees F, burning upon urination or increased frequency of urination) 4. nerve problems (inability to walk on your toes or heels, numbness, loss of bowel or bladder control) 5. any other symptoms that concern you C. Please call the office at if you have any concerns or questions about your operation or recovery. D. No smoking! Smoking drastically decreases the chance of a solid fusion. E. Do not take any anti-inflammatory medications (Indocin, Advil, Motrin, Aspirin, Naprosyn, etc.) as these may inhibit the chance of a solid fusion. Tylenol is okay to take for pain. MANAGING PAIN AFTER SPINAL SURGERY 1. Narcotic medication is intended for short-term use and will be provided for surgical pain. Surgical pain usually lasts for a period of 4-6 weeks. Narcotic medication includes Percocet, Vicodin, Darvocet, Tylenol #3 or Lortab. 2. Longer-term pain is more appropriately treated with non-narcotic medication such as Tylenol ES. 3. Muscle spasm is not appropriately treated with narcotics. Muscle relaxers such as Soma, Flexeril or Skelaxin can be used along with Tylenol ES. 4. Remember that we all live with some "aches and pains". This is not unusual or uncommon after an injury or as we get older. a. Back pain is expected and may include muscle spasms for 4 to 6 weeks after surgery. The pain should gradually improve. If the pain worsens for no apparent reason, please contact the office. b. Intermittent leg pain may also be experienced and should not be concerned about unless it worsens for no apparent reason. If so, please contact the office. 5. We will provide appropriate medication within the normal guidelines of their prescribed use. We will also be very cautious and aware of potential abuse and extended duration of patients' medication needs. a. Pain medications are for your comfort and to assist with sleep and rest so that the tissue can heal. They are not provided in order to return to normal activity and should not be used through the day. To do so or worsening pain at night can result from ongoing tissue damage and development of tolerance to the prescribed medicine. 6. Please allow 2-3 days to process refills. Prescriptions will not be mailed but must be picked up at the office. FOLLOW UP VISIT: Keep your scheduled follow-up appointment. Any questions, please call the office at . Pending Studies at Discharge: No Stand-Alone Forms: [employer], Smoking Cessation Medications and DC Order Prescriptions: New tramadol 50 mg tablet 50 mg PO Q6H PRN (Reason: pain, moderate) Qty: 30 0RF oxycodone 5 mg tablet 5 mg PO Q6H PRN (Reason: pain, severe) Qty: 30 0RF tramadol 50 mg tablet 50 mg PO Q6H PRN (Reason: pain, moderate) Qty: 30 0RF oxycodone 5 mg tablet 5 mg PO Q6H PRN (Reason: pain, severe) Qty: 30 0RF No Action Unobtainable Discharge Orders: Discharge Order (Routine); Ordered 08/27/21 Ordered By: Vikash Spencer Admission Data Admit Date/Time: 08/22/21 16:34 Attending Provider: Vikash Spencer Admit Provider: Vikash Spencer Primary Care Provider: [facility] Other Providers: Vikash Spencer
== END 2021-08-27 10:34 | disposition home or self-care (01) | DRG 455 ==
LOC: ED 10:55 → 3W 16:34